=== PATIENT | male | born 1960 | race Caucasian/White ===

== ENCOUNTER 2022-12-06 21:14 | Inpatient (IN) | payer MEDICARE, OTHER ==
[2022-12-06 21:00] VITALS: BP 115/67; PULSE 70; RESP 18; TEMP 98.4
[~2022-12-06 21:14] MED LIST: AMLO5TAB4 PO; ATOR40TA71 PO; CARV6.2534 PO; DEXA4 PO; ESTR2TAB6 PO; FINA5TAB41 PO; GABA600T10 PO; HYDR-4584 PO; PROG100C24 PO; QUET100T34 PO; QUET200T PO; RISP0.5T39 PO; TRAZ-186 PO; TRAZ-252 PO; VENL-67 PO; VENL75TA73 PO
[2022-12-06] MEDS ORDERED: ONDANSETRON HCL 4 MG/2 ML VIAL IVP PRN (21:30)
[2022-12-06] MEDS ORDERED: MAGNESIUM HYDROXIDE SUSPENSION 30 ML UDCUP PO PRN (21:30)
[2022-12-06] MEDS ORDERED: BISACODYL 10 MG RECTAL RECTAL SUPPOSITORY PR PRN (21:30)
[2022-12-06] MEDS ORDERED: ACETAMINOPHEN 325 MG TABLET PO PRN (21:30)
[2022-12-06] MEDS: ZOLPIDEM TARTRATE 5 MG TABLET PO PRN (22:28)
[2022-12-07] MEDS: HEPARIN SODIUM,PORCINE 5,000 UNITS/ML VIAL SQ SCH ×4 (00:21→23:46)
[2022-12-07] MEDS ORDERED: QUEtiapine FUMARATE 200 MG TABLET PO ONE (03:00)
[2022-12-07] MEDS ORDERED: TraZODone HCL 100 MG TABLET PO ONE (03:00)
[2022-12-07 06:05] VITALS: BP 137/74; PULSE 91; RESP 20; TEMP 97.5
[2022-12-07 07:07] LABS: BASOPHILS % (AUTO) 0.2 % (0.0-2.0); EOSINOPHILS % (AUTO) 2.8 % (1.0-6.0); HEMOGLOBIN 9.9 g/dL (13.5-17.5); LYMPHOCYTES # (AUTO) 1.7 K/uL (1.0-4.8); LYMPHOCYTES % (AUTO) 23.4 % (22.0-44.0); MEAN CORPUSCULAR HEMOGLOBIN 31.9 pg (26.0-34.0); MEAN CORPUSCULAR HGB CONC 34.1 G/dL (31.0-37.0); MEAN CORPUSCULAR VOLUME 94 fL (80-100); MONOCYTES # (AUTO) 0.7 K/uL (0.1-1.0); MONOCYTES % (AUTO) 9.4 % (2.0-9.0); NEUTROPHILS # (AUTO) 4.6 K/uL (1.8-7.7); NEUTROPHILS % (AUTO) 64.2 % (40.0-70.0); PLATELET COUNT (AUTO) 238 K/uL (150-450); RED CELL DISTRIBUTION WIDTH 13.7 % (11.5-14.5); WHITE BLOOD COUNT (AUTO) 7.1 K/uL (4.5-11.0)
[2022-12-07 07:22] LABS: ANION GAP 10 mmol/L (8-16); CALCIUM, TOTAL 8.4 mg/dL (8.8-10.5); CARBON DIOXIDE 25 mmol/L (22-29); CHLORIDE 103 mmol/L (98-107); CREATININE 0.88 mg/dL (0.60-1.30); GLOMERULAR FILTR. RATE CALC > 60 mL/min (>60); GLUCOSE,RANDOM 95 mg/dL (70-110); POTASSIUM 3.8 mmol/L (3.5-5.1); SODIUM SERUM 138 mmol/L (136-145); UREA NITROGEN, BLOOD 25 mg/dL (7-18)
[2022-12-07] MEDS: DOCUSATE SODIUM 100 MG CAPSULE PO SCH ×2 (08:50→20:12)
[2022-12-07] MEDS: FINASTERIDE 5 MG TABLET PO SCH (08:50)
[2022-12-07] MEDS: ATORVASTATIN CALCIUM 40 MG TABLET PO SCH (08:50)
[2022-12-07] MEDS: CARVEDILOL 6.25 MG TABLET PO SCH ×2 (08:50→20:13)
[2022-12-07] MEDS: PANTOPRAZOLE SODIUM 40 MG DR TABLET PO SCH (08:50)
[2022-12-07] MEDS: AmLODIPine BESYLATE 5 MG TABLET PO SCH (08:51)
[2022-12-07] MEDS: GABAPENTIN 300 MG CAPSULE PO SCH ×3 (08:51→20:13)
[2022-12-07 08:54] VITALS: BP 166/93; PULSE 102; RESP 19; TEMP 97.7
[2022-12-07] MEDS ORDERED: LORazepam 1 MG TABLET PO ONE (10:15)
[2022-12-07] MEDS: ETHYL ALCOHOL 62% ANTISEPTIC NASAL SANITIZER 0.6 ML AMPUL NASAL ONE (10:37)
[2022-12-07] MEDS ORDERED: ACETAMINOPHEN/ISO-OSM 1000 MG/100 ML BOTTLE IV ONE (12:00)
[2022-12-07] MEDS ORDERED: ONDANSETRON HCL 4 MG/2 ML VIAL IVP ONE (12:00)
[2022-12-07] MEDS ORDERED: SUGAMMADEX SODIUM 200 MG/2 ML VIAL IVP ONE (12:00)
[2022-12-07] MEDS ORDERED: FentaNYL CITRATE PF 100 MCG/2 ML VIAL IVP ONE (12:00)
[2022-12-07] MEDS ORDERED: DEXAMETHASONE SOD PHOS 4 MG/ML VIAL IVP ONE (12:00)
[2022-12-07] MEDS ORDERED: PROPOFOL 1% 20 ML VIAL IVP ONE (12:00)
[2022-12-07] MEDS ORDERED: LIDOCAINE/PF 2% 5 ML VIAL IM ONE (12:00)
[2022-12-07] MEDS ORDERED: CeFAZolin SODIUM 1 GM VIAL IVP ONE (12:00)
[2022-12-07] MEDS ORDERED: EPHEDrine SULFATE 50 MG/ML VIAL IM ONE (12:00)
[2022-12-07] MEDS ORDERED: KETOROLAC TROMETHAMINE 60 MG/2 ML VIAL IM ONE (12:00)
[2022-12-07] MEDS ORDERED: 0.9% SODIUM CHLORIDE 10 ML VIAL IV ONE (12:00)
[2022-12-07] MEDS ORDERED: MIDAZOLAM HCL 2 MG/2 ML VIAL IVP ONE (12:00)
[2022-12-07] MEDS ORDERED: LIDOCAINE/PF 1% 30 ML VIAL ONE (12:18)
[2022-12-07] MEDS ORDERED: VANCOMYCIN HCL 1 GM/VIAL ONE (12:18)
[2022-12-07] MEDS ORDERED: BUPIVACAINE HCL/PF 0.5% 30 ML VIAL ONE (12:18)
[2022-12-07] MEDS ORDERED: BUPIVACAINE LIPOSOME/PF 1.3%-13.3MG/ML SUSPENSION 20 ML VIAL INJ ONE (12:30)
[2022-12-07] MEDS: HYDROCODONE/ACETAMINOPHEN 5-325 MG TABLET PO PRN (13:25)
[2022-12-07 14:29] LABS: COVID AG,FIA SOURCE NASAL SWAB
[2022-12-07 14:54] LABS: SARS-COV2 (COVID) ANTIGEN,FIA Negative (Negative)
[2022-12-07] MEDS ORDERED: SODIUM CHLORIDE 0.9% 1,000 ML ONE ×2 (15:44→22:48)
[2022-12-07] MEDS ORDERED: RINGERS SOLUTION,LACTATED 1,000 ML IV ONE (16:00)
[2022-12-07] MEDS ORDERED: MEPERIDINE-PF 25 MG/ML VIAL IVP PRN (16:00)
[2022-12-07] MEDS ORDERED: HYDROmorphone HCL 2 MG/ML SYRINGE IVP PRN (16:00)
[2022-12-07] MEDS ORDERED: FentaNYL CITRATE PF 100 MCG/2 ML VIAL IVP PRN (16:00)
[2022-12-07] MEDS ORDERED: CeFAZolin 2 GM/DEXTROSE 50 ML IV SCH (18:30)
[2022-12-07 19:15] VITALS: BP 153/88; PULSE 86; RESP 20; TEMP 97.8
[2022-12-07 19:16] VITALS: BP 151/90
[2022-12-07] MEDS: OXYGEN THERAPY IH SCH (20:00)
[2022-12-07] MEDS: QUEtiapine FUMARATE 200 MG TABLET PO SCH (20:13)
[2022-12-07] MEDS: TraZODone HCL 100 MG TABLET PO SCH (20:13)
[2022-12-07] MEDS: ZOLPIDEM TARTRATE 5 MG TABLET PO PRN (20:14)
[2022-12-07] MEDS: MORPHINE SULFATE 2 MG/ML SYRINGE IVP PRN (20:20)
[2022-12-07 23:10] VITALS: BP 152/93; PULSE 94; RESP 20; TEMP 97.6
[2022-12-08] MEDS: CeFAZolin 2 GM/DEXTROSE 50 ML IV SCH ×2 (01:27→10:07)
[2022-12-08 03:26] VITALS: BP 146/84; PULSE 68; RESP 18; TEMP 97.8
[2022-12-08 07:19] VITALS: BP 140/82; PULSE 74; RESP 18; TEMP 97.5
[2022-12-08 07:46] LABS: BASOPHILS % (AUTO) 0.1 % (0.0-2.0); EOSINOPHILS % (AUTO) 0.6 % (1.0-6.0); HEMATOCRIT 31.4 % (41-53); HEMOGLOBIN 10.8 g/dL (13.5-17.5); LYMPHOCYTES # (AUTO) 1.1 K/uL (1.0-4.8); LYMPHOCYTES % (AUTO) 15.1 % (22.0-44.0); MEAN CORPUSCULAR HEMOGLOBIN 32.2 pg (26.0-34.0); MEAN CORPUSCULAR HGB CONC 34.2 G/dL (31.0-37.0); MEAN CORPUSCULAR VOLUME 94 fL (80-100); MONOCYTES # (AUTO) 0.6 K/uL (0.1-1.0); MONOCYTES % (AUTO) 8.3 % (2.0-9.0); NEUTROPHILS # (AUTO) 5.7 K/uL (1.8-7.7); NEUTROPHILS % (AUTO) 75.9 % (40.0-70.0); PLATELET COUNT (AUTO) 304 K/uL (150-450); RED BLOOD CELL COUNT(AUTO) 3.34 MIL/uL (4.50-5.90); RED CELL DISTRIBUTION WIDTH 13.8 % (11.5-14.5); WHITE BLOOD COUNT (AUTO) 7.6 K/uL (4.5-11.0)
[2022-12-08] MEDS: OXYGEN THERAPY IH SCH ×2 (08:00→20:00)
[2022-12-08 08:08] LABS: ANION GAP 9 mmol/L (8-16); CALCIUM, TOTAL 8.5 mg/dL (8.8-10.5); CARBON DIOXIDE 24 mmol/L (22-29); CHLORIDE 101 mmol/L (98-107); CREATININE 1.16 mg/dL (0.60-1.30); GLOMERULAR FILTR. RATE CALC > 60 mL/min (>60); GLUCOSE,RANDOM 99 mg/dL (70-110); POTASSIUM 4.6 mmol/L (3.5-5.1); SODIUM SERUM 134 mmol/L (136-145); UREA NITROGEN, BLOOD 26 mg/dL (7-18)
[2022-12-08] MEDS: DOCUSATE SODIUM 100 MG CAPSULE PO SCH ×2 (08:29→20:19)
[2022-12-08] MEDS: GABAPENTIN 300 MG CAPSULE PO SCH ×3 (08:30→20:20)
[2022-12-08] MEDS: AmLODIPine BESYLATE 5 MG TABLET PO SCH (08:31)
[2022-12-08] MEDS: HEPARIN SODIUM,PORCINE 5,000 UNITS/ML VIAL SQ SCH ×3 (08:31→23:53)
[2022-12-08] MEDS: CARVEDILOL 6.25 MG TABLET PO SCH ×2 (08:32→20:19)
[2022-12-08] MEDS: PANTOPRAZOLE SODIUM 40 MG DR TABLET PO SCH (08:32)
[2022-12-08] MEDS: VENLAFAXINE HCL 75 MG ER CAPSULE PO SCH (08:32)
[2022-12-08] MEDS: FINASTERIDE 5 MG TABLET PO SCH (08:32)
[2022-12-08] MEDS: ATORVASTATIN CALCIUM 40 MG TABLET PO SCH (08:32)
[2022-12-08] MEDS: ASPIRIN 81 MG CHEWABLE TABLET PO SCH (08:33)
[2022-12-08] MEDS: ETHYL ALCOHOL 62% ANTISEPTIC NASAL SANITIZER 0.6 ML AMPUL NASAL ONE (10:10)
[2022-12-08 15:04] VITALS: BP 152/86; PULSE 78; RESP 20; TEMP 98.5
[2022-12-08 20:06] VITALS: BP 143/78; PULSE 72; RESP 20; TEMP 98.7
[2022-12-08] MEDS: TraZODone HCL 100 MG TABLET PO SCH (20:19)
[2022-12-08] MEDS: QUEtiapine FUMARATE 200 MG TABLET PO SCH (20:19)
[2022-12-08] MEDS: ZOLPIDEM TARTRATE 5 MG TABLET PO PRN (20:20)
[2022-12-08] MEDS: MORPHINE SULFATE 2 MG/ML SYRINGE IVP PRN (23:11)
[2022-12-08] MEDS: HALOPERIDOL 5 MG TABLET PO PRN (23:53)
[2022-12-09] MEDS: LORazepam 2 MG TABLET PO PRN ×4 (02:58→21:37)
[2022-12-09] MEDS: HYDROCODONE/ACETAMINOPHEN 5-325 MG TABLET PO PRN ×3 (03:06→16:35)
[2022-12-09 03:56] VITALS: BP 152/83; PULSE 78; RESP 20; TEMP 98.9
[2022-12-09 07:18] LABS: BASOPHILS % (AUTO) 0.9 % (0.0-2.0); EOSINOPHILS % (AUTO) 2.6 % (1.0-6.0); HEMATOCRIT 30.9 % (41-53); HEMOGLOBIN 10.6 g/dL (13.5-17.5); LYMPHOCYTES # (AUTO) 1.8 K/uL (1.0-4.8); LYMPHOCYTES % (AUTO) 18.8 % (22.0-44.0); MEAN CORPUSCULAR HEMOGLOBIN 32.2 pg (26.0-34.0); MEAN CORPUSCULAR HGB CONC 34.4 G/dL (31.0-37.0); MEAN CORPUSCULAR VOLUME 94 fL (80-100); MONOCYTES # (AUTO) 0.9 K/uL (0.1-1.0); MONOCYTES % (AUTO) 9.7 % (2.0-9.0); NEUTROPHILS # (AUTO) 6.6 K/uL (1.8-7.7); PLATELET COUNT (AUTO) 339 K/uL (150-450); RED CELL DISTRIBUTION WIDTH 13.8 % (11.5-14.5); WHITE BLOOD COUNT (AUTO) 9.7 K/uL (4.5-11.0)
[2022-12-09 07:30] LABS: ANION GAP 7 mmol/L (8-16); CARBON DIOXIDE 25 mmol/L (22-29); CHLORIDE 101 mmol/L (98-107); CREATININE 1.05 mg/dL (0.60-1.30); GLOMERULAR FILTR. RATE CALC > 60 mL/min (>60); GLUCOSE,RANDOM 123 mg/dL (70-110); POTASSIUM 4.7 mmol/L (3.5-5.1); SODIUM SERUM 133 mmol/L (136-145); UREA NITROGEN, BLOOD 25 mg/dL (7-18)
[2022-12-09] MEDS: HEPARIN SODIUM,PORCINE 5,000 UNITS/ML VIAL SQ SCH ×3 (07:43→22:37)
[2022-12-09] MEDS: ASPIRIN 81 MG CHEWABLE TABLET PO SCH (07:44)
[2022-12-09] MEDS: AmLODIPine BESYLATE 5 MG TABLET PO SCH (07:44)
[2022-12-09] MEDS: ATORVASTATIN CALCIUM 40 MG TABLET PO SCH (07:44)
[2022-12-09] MEDS: GABAPENTIN 300 MG CAPSULE PO SCH ×3 (07:44→20:38)
[2022-12-09] MEDS: CARVEDILOL 6.25 MG TABLET PO SCH ×2 (07:44→20:35)
[2022-12-09] MEDS: PANTOPRAZOLE SODIUM 40 MG DR TABLET PO SCH (07:44)
[2022-12-09] MEDS: DOCUSATE SODIUM 100 MG CAPSULE PO SCH ×2 (07:44→20:35)
[2022-12-09] MEDS: VENLAFAXINE HCL 75 MG ER CAPSULE PO SCH (07:44)
[2022-12-09] MEDS: HALOPERIDOL 5 MG TABLET PO PRN ×3 (07:45→21:37)
[2022-12-09] MEDS: FINASTERIDE 5 MG TABLET PO SCH (07:45)
[2022-12-09 08:17] VITALS: BP 147/92; PULSE 100; RESP 20; TEMP 98.7
[2022-12-09 15:06] VITALS: BP 137/88; PULSE 91; RESP 20; TEMP 98.7
[2022-12-09 20:00] VITALS: BP 153/79; PULSE 86; RESP 20; TEMP 98.1
[2022-12-09] MEDS: OXYGEN THERAPY IH SCH (20:00)
[2022-12-09] MEDS: TraZODone HCL 100 MG TABLET PO SCH (20:35)
[2022-12-09] MEDS: QUEtiapine FUMARATE 200 MG TABLET PO SCH (20:35)
[2022-12-10 05:00] VITALS: BP 124/67; PULSE 82; RESP 18; TEMP 98.2
[2022-12-10] MEDS: OXYGEN THERAPY IH SCH (08:00)
[2022-12-10 08:30] VITALS: BP 141/86; PULSE 101; RESP 18; TEMP 98
[2022-12-10 08:36] LABS: BASOPHILS % (AUTO) 0.4 % (0.0-2.0); EOSINOPHILS % (AUTO) 1.8 % (1.0-6.0); HEMATOCRIT 31.7 % (41-53); HEMOGLOBIN 10.5 g/dL (13.5-17.5); LYMPHOCYTES # (AUTO) 1.2 K/uL (1.0-4.8); LYMPHOCYTES % (AUTO) 12.7 % (22.0-44.0); MEAN CORPUSCULAR HEMOGLOBIN 31.6 pg (26.0-34.0); MEAN CORPUSCULAR HGB CONC 33.2 G/dL (31.0-37.0); MEAN CORPUSCULAR VOLUME 95 fL (80-100); MONOCYTES # (AUTO) 0.9 K/uL (0.1-1.0); MONOCYTES % (AUTO) 10.1 % (2.0-9.0); NEUTROPHILS # (AUTO) 6.9 K/uL (1.8-7.7); PLATELET COUNT (AUTO) 297 K/uL (150-450); RED BLOOD CELL COUNT(AUTO) 3.32 MIL/uL (4.50-5.90); RED CELL DISTRIBUTION WIDTH 14.1 % (11.5-14.5); WHITE BLOOD COUNT (AUTO) 9.2 K/uL (4.5-11.0)
[2022-12-10 08:50] LABS: ALANINE AMINOTRANSFERASE 22 U/L (12-78); ALBUMIN 2.9 g/dL (3.4-5.0); ALKALINE PHOSPHATASE 59 U/L (46-116); ANION GAP 7 mmol/L (8-16); ASPARTATE AMINOTRANSFERASE 33 U/L (15-37); BILIRUBIN,TOTAL 0.5 mg/dL (0.1-1.0); CALCIUM, TOTAL 8.5 mg/dL (8.8-10.5); CARBON DIOXIDE 24 mmol/L (22-29); CHLORIDE 100 mmol/L (98-107); CREATININE 0.86 mg/dL (0.60-1.30); GLOMERULAR FILTR. RATE CALC > 60 mL/min (>60); GLUCOSE,RANDOM 116 mg/dL (70-110); POTASSIUM 4.2 mmol/L (3.5-5.1); SODIUM SERUM 131 mmol/L (136-145); TOTAL PROTEIN, SERUM 6.7 g/dL (6.4-8.2); UREA NITROGEN, BLOOD 23 mg/dL (7-18)
[2022-12-10] MEDS: ATORVASTATIN CALCIUM 40 MG TABLET PO SCH (08:57)
[2022-12-10] MEDS: VENLAFAXINE HCL 75 MG ER CAPSULE PO SCH (08:57)
[2022-12-10] MEDS: ASPIRIN 81 MG CHEWABLE TABLET PO SCH (08:57)
[2022-12-10] MEDS: GABAPENTIN 300 MG CAPSULE PO SCH ×3 (08:57→20:27)
[2022-12-10] MEDS: PANTOPRAZOLE SODIUM 40 MG DR TABLET PO SCH (08:58)
[2022-12-10] MEDS: FINASTERIDE 5 MG TABLET PO SCH (08:58)
[2022-12-10] MEDS: AmLODIPine BESYLATE 5 MG TABLET PO SCH (08:58)
[2022-12-10] MEDS: CARVEDILOL 6.25 MG TABLET PO SCH ×2 (08:58→20:27)
[2022-12-10] MEDS: DOCUSATE SODIUM 100 MG CAPSULE PO SCH ×2 (08:58→20:27)
[2022-12-10] MEDS: HEPARIN SODIUM,PORCINE 5,000 UNITS/ML VIAL SQ SCH ×3 (08:58→23:58)
[2022-12-10] MEDS: LORazepam 2 MG TABLET PO PRN ×2 (14:26→20:26)
[2022-12-10 15:30] VITALS: BP 155/88; PULSE 90; RESP 18; TEMP 97.5
[2022-12-10] MEDS: HALOPERIDOL 5 MG TABLET PO PRN ×2 (15:40→21:34)
[2022-12-10 19:24] VITALS: BP 168/83; PULSE 98; RESP 19; TEMP 97.9
[2022-12-10] MEDS: ZOLPIDEM TARTRATE 5 MG TABLET PO PRN (20:26)
[2022-12-10] MEDS: TraZODone HCL 100 MG TABLET PO SCH (20:27)
[2022-12-10] MEDS: QUEtiapine FUMARATE 200 MG TABLET PO SCH (20:27)
[2022-12-11 04:43] VITALS: BP 145/75; PULSE 83; RESP 18; TEMP 97.5
[2022-12-11 07:16] LABS: BASOPHILS % (AUTO) 0.3 % (0.0-2.0); EOSINOPHILS % (AUTO) 2.8 % (1.0-6.0); HEMATOCRIT 31.1 % (41-53); HEMOGLOBIN 10.8 g/dL (13.5-17.5); LYMPHOCYTES # (AUTO) 1.5 K/uL (1.0-4.8); LYMPHOCYTES % (AUTO) 18.5 % (22.0-44.0); MEAN CORPUSCULAR HEMOGLOBIN 32.6 pg (26.0-34.0); MEAN CORPUSCULAR HGB CONC 34.8 G/dL (31.0-37.0); MEAN CORPUSCULAR VOLUME 94 fL (80-100); MONOCYTES # (AUTO) 0.8 K/uL (0.1-1.0); MONOCYTES % (AUTO) 9.9 % (2.0-9.0); NEUTROPHILS # (AUTO) 5.6 K/uL (1.8-7.7); NEUTROPHILS % (AUTO) 68.5 % (40.0-70.0); PLATELET COUNT (AUTO) 340 K/uL (150-450); RED BLOOD CELL COUNT(AUTO) 3.33 MIL/uL (4.50-5.90); RED CELL DISTRIBUTION WIDTH 13.8 % (11.5-14.5); WHITE BLOOD COUNT (AUTO) 8.2 K/uL (4.5-11.0)
[2022-12-11 07:18] LABS: ANION GAP 8 mmol/L (8-16); CALCIUM, TOTAL 8.8 mg/dL (8.8-10.5); CARBON DIOXIDE 23 mmol/L (22-29); CHLORIDE 100 mmol/L (98-107); CREATININE 0.89 mg/dL (0.60-1.30); GLOMERULAR FILTR. RATE CALC > 60 mL/min (>60); GLUCOSE,RANDOM 118 mg/dL (70-110); POTASSIUM 4.3 mmol/L (3.5-5.1); SODIUM SERUM 131 mmol/L (136-145); UREA NITROGEN, BLOOD 23 mg/dL (7-18)
[2022-12-11 07:22] VITALS: BP 150/82; PULSE 87; RESP 20; TEMP 98.5
[2022-12-11] MEDS: DOCUSATE SODIUM 100 MG CAPSULE PO SCH ×2 (08:12→20:05)
[2022-12-11] MEDS: VENLAFAXINE HCL 75 MG ER CAPSULE PO SCH (08:12)
[2022-12-11] MEDS: FINASTERIDE 5 MG TABLET PO SCH (08:12)
[2022-12-11] MEDS: AmLODIPine BESYLATE 5 MG TABLET PO SCH (08:12)
[2022-12-11] MEDS: CARVEDILOL 6.25 MG TABLET PO SCH ×2 (08:12→20:04)
[2022-12-11] MEDS: GABAPENTIN 300 MG CAPSULE PO SCH ×3 (08:12→20:02)
[2022-12-11] MEDS: PANTOPRAZOLE SODIUM 40 MG DR TABLET PO SCH (08:12)
[2022-12-11] MEDS: ASPIRIN 81 MG CHEWABLE TABLET PO SCH (08:13)
[2022-12-11] MEDS: HEPARIN SODIUM,PORCINE 5,000 UNITS/ML VIAL SQ SCH ×2 (08:13→15:37)
[2022-12-11] MEDS: ATORVASTATIN CALCIUM 40 MG TABLET PO SCH (08:14)
[2022-12-11] MEDS: HYDROCODONE/ACETAMINOPHEN 5-325 MG TABLET PO PRN ×2 (12:37→20:01)
[2022-12-11] MEDS: LORazepam 2 MG TABLET PO PRN ×2 (15:35→20:04)
[2022-12-11 15:39] VITALS: BP 158/87; PULSE 93; RESP 20; TEMP 98.5
[2022-12-11] MEDS: OXYGEN THERAPY IH SCH (20:00)
[2022-12-11] MEDS: TraZODone HCL 100 MG TABLET PO SCH (20:01)
[2022-12-11] MEDS: HALOPERIDOL 5 MG TABLET PO PRN (20:03)
[2022-12-11] MEDS: ETHYL ALCOHOL 62% ANTISEPTIC NASAL SANITIZER 0.6 ML AMPUL NASAL SCH (20:05)
[2022-12-11 20:59] VITALS: BP 146/88; PULSE 95; RESP 20; TEMP 98.2
[2022-12-11] MEDS: QUEtiapine FUMARATE 200 MG TABLET PO SCH (21:16)
[2022-12-12] MEDS: HEPARIN SODIUM,PORCINE 5,000 UNITS/ML VIAL SQ SCH ×4 (01:19→23:51)
[2022-12-12] MEDS: HALOPERIDOL 5 MG TABLET PO PRN (01:21)
[2022-12-12] MEDS: LORazepam 2 MG TABLET PO PRN (01:22)
[2022-12-12] MEDS: HYDROCODONE/ACETAMINOPHEN 5-325 MG TABLET PO PRN ×2 (01:22→22:42)
[2022-12-12 04:40] VITALS: BP 121/77; PULSE 73; RESP 20; TEMP 98
[2022-12-12 07:03] LABS: BASOPHILS % (AUTO) 0.3 % (0.0-2.0); EOSINOPHILS % (AUTO) 2.5 % (1.0-6.0); HEMOGLOBIN 10.3 g/dL (13.5-17.5); LYMPHOCYTES # (AUTO) 1.4 K/uL (1.0-4.8); LYMPHOCYTES % (AUTO) 15.2 % (22.0-44.0); MEAN CORPUSCULAR HEMOGLOBIN 32.4 pg (26.0-34.0); MEAN CORPUSCULAR HGB CONC 34.5 G/dL (31.0-37.0); MEAN CORPUSCULAR VOLUME 94 fL (80-100); MONOCYTES # (AUTO) 0.9 K/uL (0.1-1.0); MONOCYTES % (AUTO) 10.2 % (2.0-9.0); NEUTROPHILS # (AUTO) 6.6 K/uL (1.8-7.7); NEUTROPHILS % (AUTO) 71.8 % (40.0-70.0); PLATELET COUNT (AUTO) 338 K/uL (150-450); RED CELL DISTRIBUTION WIDTH 13.9 % (11.5-14.5); WHITE BLOOD COUNT (AUTO) 9.1 K/uL (4.5-11.0)
[2022-12-12 07:26] VITALS: BP 124/78; PULSE 76; RESP 20; TEMP 98.2
[2022-12-12 07:38] LABS: ANION GAP 9 mmol/L (8-16); CALCIUM, TOTAL 9.2 mg/dL (8.8-10.5); CARBON DIOXIDE 25 mmol/L (22-29); CHLORIDE 99 mmol/L (98-107); CREATININE 0.96 mg/dL (0.60-1.30); GLOMERULAR FILTR. RATE CALC > 60 mL/min (>60); GLUCOSE,RANDOM 118 mg/dL (70-110); POTASSIUM 4.7 mmol/L (3.5-5.1); SODIUM SERUM 133 mmol/L (136-145); UREA NITROGEN, BLOOD 22 mg/dL (7-18)
[2022-12-12] MEDS: AmLODIPine BESYLATE 5 MG TABLET PO SCH (09:00)
[2022-12-12] MEDS: PANTOPRAZOLE SODIUM 40 MG DR TABLET PO SCH (09:13)
[2022-12-12] MEDS: ASPIRIN 81 MG CHEWABLE TABLET PO SCH (09:13)
[2022-12-12] MEDS: ATORVASTATIN CALCIUM 40 MG TABLET PO SCH (09:14)
[2022-12-12] MEDS: GABAPENTIN 300 MG CAPSULE PO SCH ×3 (09:14→20:16)
[2022-12-12] MEDS: FINASTERIDE 5 MG TABLET PO SCH (09:14)
[2022-12-12] MEDS: CARVEDILOL 6.25 MG TABLET PO SCH ×2 (09:14→20:16)
[2022-12-12] MEDS: VENLAFAXINE HCL 75 MG ER CAPSULE PO SCH (09:14)
[2022-12-12] MEDS: DOCUSATE SODIUM 100 MG CAPSULE PO SCH ×2 (09:15→20:16)
[2022-12-12] MEDS: ETHYL ALCOHOL 62% ANTISEPTIC NASAL SANITIZER 0.6 ML AMPUL NASAL SCH ×2 (09:16→20:15)
[2022-12-12 14:59] VITALS: BP 152/64; PULSE 88; RESP 20; TEMP 97.8
[2022-12-12 19:41] VITALS: BP 142/85; PULSE 75; RESP 20; TEMP 97.7
[2022-12-12] MEDS: TraZODone HCL 100 MG TABLET PO SCH (20:16)
[2022-12-12] MEDS: QUEtiapine FUMARATE 200 MG TABLET PO SCH (20:16)
[2022-12-12] MEDS: ZOLPIDEM TARTRATE 5 MG TABLET PO PRN (22:42)
[2022-12-13 04:30] VITALS: BP 143/85; PULSE 64; RESP 20; TEMP 97.5
[2022-12-13 07:26] VITALS: BP 138/84; PULSE 68; RESP 20; TEMP 97.8
[2022-12-13] MEDS: ETHYL ALCOHOL 62% ANTISEPTIC NASAL SANITIZER 0.6 ML AMPUL NASAL SCH ×2 (08:45→19:50)
[2022-12-13] MEDS: GABAPENTIN 300 MG CAPSULE PO SCH ×3 (08:45→19:51)
[2022-12-13] MEDS: ASPIRIN 81 MG CHEWABLE TABLET PO SCH (08:46)
[2022-12-13] MEDS: ATORVASTATIN CALCIUM 40 MG TABLET PO SCH (08:46)
[2022-12-13] MEDS: VENLAFAXINE HCL 75 MG ER CAPSULE PO SCH (08:46)
[2022-12-13] MEDS: PANTOPRAZOLE SODIUM 40 MG DR TABLET PO SCH (08:47)
[2022-12-13] MEDS: DOCUSATE SODIUM 100 MG CAPSULE PO SCH ×2 (08:47→19:51)
[2022-12-13] MEDS: AmLODIPine BESYLATE 5 MG TABLET PO SCH (08:50)
[2022-12-13] MEDS: HEPARIN SODIUM,PORCINE 5,000 UNITS/ML VIAL SQ SCH ×3 (08:50→23:27)
[2022-12-13] MEDS: CARVEDILOL 6.25 MG TABLET PO SCH ×2 (08:50→19:51)
[2022-12-13] MEDS: FINASTERIDE 5 MG TABLET PO SCH (10:35)
[2022-12-13 15:24] VITALS: BP 130/78; PULSE 70; RESP 20; TEMP 97.7
[2022-12-13 19:15] VITALS: BP 147/68; PULSE 80; RESP 20; TEMP 97.8
[2022-12-13] MEDS: TraZODone HCL 100 MG TABLET PO SCH (19:51)
[2022-12-13] MEDS: QUEtiapine FUMARATE 200 MG TABLET PO SCH (19:51)
[2022-12-14 03:00] VITALS: BP 126/73; PULSE 76; RESP 20; TEMP 97.6
[2022-12-14] MEDS: HYDROCODONE/ACETAMINOPHEN 5-325 MG TABLET PO PRN ×2 (03:31→09:53)
[2022-12-14] MEDS: DOCUSATE SODIUM 100 MG CAPSULE PO SCH (07:57)
[2022-12-14] MEDS: ASPIRIN 81 MG CHEWABLE TABLET PO SCH (07:58)
[2022-12-14] MEDS: VENLAFAXINE HCL 75 MG ER CAPSULE PO SCH (07:58)
[2022-12-14] MEDS: ATORVASTATIN CALCIUM 40 MG TABLET PO SCH (07:58)
[2022-12-14] MEDS: FINASTERIDE 5 MG TABLET PO SCH (07:58)
[2022-12-14] MEDS: GABAPENTIN 300 MG CAPSULE PO SCH ×2 (07:58→15:59)
[2022-12-14] MEDS: HEPARIN SODIUM,PORCINE 5,000 UNITS/ML VIAL SQ SCH ×2 (07:59→16:00)
[2022-12-14] MEDS: PANTOPRAZOLE SODIUM 40 MG DR TABLET PO SCH (07:59)
[2022-12-14] MEDS: AmLODIPine BESYLATE 5 MG TABLET PO SCH (08:00)
[2022-12-14] MEDS: CARVEDILOL 6.25 MG TABLET PO SCH (08:00)
[2022-12-14] MEDS: ETHYL ALCOHOL 62% ANTISEPTIC NASAL SANITIZER 0.6 ML AMPUL NASAL SCH (08:05)
[2022-12-14] MEDS: LORazepam 2 MG TABLET PO PRN (08:11)
[2022-12-14 09:33] VITALS: BP 136/98; PULSE 95; RESP 20; TEMP 98.1
== END 2022-12-14 16:55 | DRG 516 ==
LOC: 6N 21:14 → 6S 12-08 18:45
PROVIDERS: ADMIT Internal Medicine; ATTEND Internal Medicine
PROC: 0QS504Z Reposition Left Acetabulum with Internal Fixation Device, Open Approach (ICD-10-PCS; principal; 2022-12-07 17:00)
DX: S72.002A Fracture of unspecified part of neck of left femur, initial encounter for closed fracture (principal); Z59.00 Homelessness unspecified; I10 Essential (primary) hypertension; E78.5 Hyperlipidemia, unspecified; N40.0 Benign prostatic hyperplasia without lower urinary tract symptoms; F64.0 Transsexualism; Z20.822 Contact with and (suspected) exposure to COVID-19; F25.0 Schizoaffective disorder, bipolar type; W18.30XA Fall on same level, unspecified, initial encounter; Y93.89 Activity, other specified; Y92.89 Other specified places as the place of occurrence of the external cause; Y99.8 Other external cause status; Z79.899 Other long term (current) drug therapy; Z86.16 Personal history of COVID-19
CPT/HCPCS: 80048; 80053; 85025; 87081; 97116; 97162; 97166; 97530; 97535; 99285; C9290; J0131; J0690; J1100; J1644; J1885; J2250; J2270; J2405; J2704; J3010; J3370; J3490; J7030; Q9967

== ENCOUNTER 2024-04-22 14:56 | Emergency (ER) | payer MEDICARE, OTHER ==
[~2024-04-22] VITALS: Ht 188 cm; Wt 91.0 kg
[~2024-04-22 14:56] MED LIST changes: +GABA-1404 PO; -GABA600T10 PO; -HYDR-4584 PO; -PROG100C24 PO; -QUET100T34 PO; -RISP0.5T39 PO; -TRAZ-252 PO; -VENL-67 PO
[2024-04-22 15:59] VITALS: TEMP 97.7
[2024-04-22 16:14] LABS: BASOPHILS % (AUTO) 0.6 % (0.0-2.0); EOSINOPHILS % (AUTO) 1.5 % (1.0-6.0); HEMATOCRIT 40.4 % (41-53); HEMOGLOBIN 13.7 g/dL (13.5-17.5); LYMPHOCYTES # (AUTO) 1.3 K/uL (1.0-4.8); LYMPHOCYTES % (AUTO) 25.7 % (22.0-44.0); MEAN CORPUSCULAR HEMOGLOBIN 33.8 pg (26.0-34.0); MEAN CORPUSCULAR HGB CONC 33.8 G/dL (31.0-37.0); MEAN CORPUSCULAR VOLUME 100 fL (80-100); MONOCYTES # (AUTO) 0.6 K/uL (0.1-1.0); MONOCYTES % (AUTO) 11.3 % (2.0-9.0); NEUTROPHILS # (AUTO) 3.1 K/uL (1.8-7.7); NEUTROPHILS % (AUTO) 60.9 % (40.0-70.0); PLATELET COUNT (AUTO) 215 K/uL (150-450); RED BLOOD CELL COUNT(AUTO) 4.05 MIL/uL (4.50-5.90); RED CELL DISTRIBUTION WIDTH 13.5 % (11.5-14.5); WHITE BLOOD COUNT (AUTO) 5.2 K/uL (4.5-11.0)
[2024-04-22 16:22] LABS: ANION GAP 11 mmol/L (8-16); CALCIUM, TOTAL 8.5 mg/dL (8.8-10.5); CARBON DIOXIDE 25 mmol/L (22-29); CHLORIDE 100 mmol/L (98-107); CREATININE 1.05 mg/dL (0.60-1.30); GLOMERULAR FILTR. RATE CALC > 60 mL/min (>60); GLUCOSE,RANDOM 119 mg/dL (70-110); POTASSIUM 4.4 mmol/L (3.5-5.1); SODIUM SERUM 136 mmol/L (136-145); UREA NITROGEN, BLOOD 13 mg/dL (7-18)
[2024-04-22 16:33] LABS: COVID AG,FIA SOURCE NASAL SWAB
[2024-04-22 16:36] LABS: ALCOHOL, BLOOD (SERUM) < 3 mg/dL (0-10)
[2024-04-22 16:56] LABS: SARS-COV2 (COVID) ANTIGEN,FIA Negative (Negative)
[2024-04-22] MEDS ORDERED: VALP250C48 PO (18:09)
[2024-04-22] MEDS ORDERED: PRAZ1 PO ×2 (18:09)
[2024-04-22] MEDS ORDERED: PANT-31 PO (18:09)
[2024-04-22] MEDS ORDERED: ATOR40TA28 PO (18:09)
[2024-04-22] MEDS ORDERED: ONDA-104 PO (18:09)
[2024-04-22] MEDS ORDERED: ACET-2247 PO (18:09)
[2024-04-22 18:41] LABS: PH,URINE DRUG SCREEN 6.5 (5.0-8.0)
[2024-04-22 18:55] VITALS: BP 144/75; PULSE 88; RESP 20; O2SAT 100
[2024-04-22 18:55] LABS: ALCOHOL, URINE DRUG SCREEN NEGATIVE (NEGATIVE); AMPHET/METH SCREEN,URINE NEGATIVE (NEGATIVE); BARBITURATE SCREEN, URINE NEGATIVE (NEGATIVE); BENZODIAZEPINES SCREEN,URINE NEGATIVE (NEGATIVE); CANNABINOID SCREEN,URINE NEGATIVE (NEGATIVE); COCAINE SCREEN,URINE NEGATIVE (NEGATIVE); METHADONE SCREEN, URINE NEGATIVE (NEGATIVE); OPIATE SCREEN,URINE NEGATIVE (NEGATIVE); PHENCYCLIDINE SCREEN,URINE NEGATIVE (NEGATIVE)
[2024-04-23] MEDS ORDERED: DOCU100C33 PO (02:31)
[2024-04-23] MEDS ORDERED: VENL-193 PO (02:31)
[2024-04-23] MEDS ORDERED: PANT40TA54 PO (02:31)
[2024-04-23] MEDS ORDERED: CYAN500T56 PO (02:31)
[2024-04-23] MEDS ORDERED: FERR325T23 PO (02:31)
[2024-04-23] MEDS ORDERED: CHOL200059 PO (02:31)
[2024-04-23] MEDS ORDERED: SENN-374 PO (02:31)
[2024-04-23] MEDS ORDERED: AMLO10TA55 PO (02:31)
[2024-04-23] MEDS ORDERED: MAGN-169 PO (02:31)
[2024-04-23] MEDS ORDERED: BISA10SU11 PR (02:31)
[2024-04-23] MEDS ORDERED: ASPI-1444 PO (02:31)
[2024-04-23] MEDS ORDERED: NA P266E PR (02:31)
== END 2024-04-22 19:50 | disposition home or self-care (01) ==
LOC: EMS 14:58
DX: F31.9 Bipolar disorder, unspecified (principal); J45.909 Unspecified asthma, uncomplicated; F12.90 Cannabis use, unspecified, uncomplicated; Z79.52 Long term (current) use of systemic steroids; Z79.899 Other long term (current) drug therapy; Z20.822 Contact with and (suspected) exposure to COVID-19
CPT/HCPCS: 99284; 87426; 80048; 85025; 36415; 80307; G0480; 99283

== ENCOUNTER 2024-04-22 21:28 | Emergency (ER) | payer MEDICARE, OTHER ==
[~2024-04-22] VITALS: Ht 188 cm; Wt 104.5 kg
[~2024-04-22 21:28] MED LIST changes: +ACET-2247 PO; +ATOR40TA28 PO; +ONDA-104 PO; +PANT-31 PO; +PRAZ1 PO; +VALP250C48 PO
[2024-04-23 01:27] VITALS: TEMP 98.6
[2024-04-23] MEDS ORDERED: FERR325T23 PO (02:31)
[2024-04-23] MEDS ORDERED: VENL-193 PO (02:31)
[2024-04-23] MEDS ORDERED: BISA10SU11 PR (02:31)
[2024-04-23] MEDS ORDERED: MAGN-169 PO (02:31)
[2024-04-23] MEDS ORDERED: CHOL200059 PO (02:31)
[2024-04-23] MEDS ORDERED: ASPI-1444 PO (02:31)
[2024-04-23] MEDS ORDERED: PANT40TA54 PO (02:31)
[2024-04-23] MEDS ORDERED: AMLO10TA55 PO (02:31)
[2024-04-23] MEDS ORDERED: SENN-374 PO (02:31)
[2024-04-23] MEDS ORDERED: CYAN500T56 PO (02:31)
[2024-04-23] MEDS ORDERED: NA P266E PR (02:31)
[2024-04-23] MEDS ORDERED: DOCU100C33 PO (02:31)
[2024-04-23] MEDS: QUEtiapine FUMARATE 100 MG TABLET PO ONE (02:44)
[2024-04-23] MEDS: CARVEDILOL 6.25 MG TABLET PO ONE (02:44)
[2024-04-23] MEDS: TraZODone HCL 50 MG TABLET PO ONE (02:44)
[2024-04-23] MEDS: AmLODIPine BESYLATE 5 MG TABLET PO ONE (02:44)
[2024-04-23] MEDS: DIVALPROEX SODIUM 500 MG ER TABLET PO ONE (10:58)
[2024-04-23] MEDS: LORazepam 2 MG TABLET PO ONE (10:58)
[2024-04-23 11:00] LABS: APPEARANCE,URINE CLEAR (CLEAR); BILIRUBIN,URINE NEGATIVE (NEGATIVE); COLOR,URINE LIGHT YELLOW (YELLOW); GLUCOSE, URINE (UA) NEGATIVE (NEGATIVE); KETONES,URINE NEGATIVE (NEGATIVE); LEUKOCYTE ESTERASE ,URINE NEGATIVE (NEGATIVE); NITRATE,URINE NEGATIVE (NEGATIVE); OCCULT BLOOD,URINE TRACE (NEGATIVE); PROTEIN,URINE TRACE mg/dL (NEGATIVE); SPECIFIC GRAVITIY, URINE 1.014 (1.003-1.030); UROBILINOGEN,URINE <=1.0 mg/dL (<=1.0)
[2024-04-23 11:08] LABS: ALCOHOL, URINE DRUG SCREEN NEGATIVE (NEGATIVE); AMPHET/METH SCREEN,URINE NEGATIVE (NEGATIVE); BARBITURATE SCREEN, URINE NEGATIVE (NEGATIVE); BENZODIAZEPINES SCREEN,URINE NEGATIVE (NEGATIVE); CANNABINOID SCREEN,URINE NEGATIVE (NEGATIVE); COCAINE SCREEN,URINE NEGATIVE (NEGATIVE); METHADONE SCREEN, URINE NEGATIVE (NEGATIVE); OPIATE SCREEN,URINE NEGATIVE (NEGATIVE); PHENCYCLIDINE SCREEN,URINE NEGATIVE (NEGATIVE)
[2024-04-23 11:14] LABS: BACTERIA,URINE None Seen /HPF (None Seen); RBC,URINE 0-2 /HPF (0-2); SQUAMOUS EPITHELIAL CELL,UR Few /LPF (None Seen); WBC,URINE 0-2 /HPF (0-5)
[2024-04-23 12:13] VITALS: BP 132/92; PULSE 75; RESP 16; O2SAT 98
== END 2024-04-23 14:30 | disposition home or self-care (01) ==
LOC: EMS 21:28
DX: F31.9 Bipolar disorder, unspecified (principal); R44.0 Auditory hallucinations
CPT/HCPCS: 80307; 81001; 99285